=== PATIENT | male | born 1990 | race Two or more races ===

== ENCOUNTER 2024-11-15 07:14 | Inpatient (IN) | payer OTHER ==
[~2024-11-15] VITALS: Ht 167.6 cm; Wt 78.2 kg
--- NOTE | 2024-11-15 08:11 | ED.PDOC ---
GI ASSESSMENT HPI Comments 34 year old female presents to the ED with a chief complaint of abdominal pain onset 6 days. Patient states he has been experiencing abdominal pain for the past 6 days as well as fatigue, fever, headache and dark urine. Patient states he experienced similar pain in the past, had seen PCP but was never given a diagnosis. Denies PMHx. No other symptoms or modifying factors present at this time. Chief Complaint: Abdominal Pain Time Seen by MD: 07:57 Reviewed Notes: Medications, Allergies Allergies: Coded Allergies: NO KNOWN ALLERGIES (Unverified , 11/15/24) Information Source: Patient Mode of Arrival: Ambulatory Timing: Days Duration: Since onset Prehospital treatment: Pain Meds Vomitus: None Severity: Moderate Recent Hx of: None Pain Location: Diffuse Modifying Factors: Nothing Associated sign and symptoms: Abdominal Pain, Other (dark urine) Past Medical History PAST MEDICAL HISTORY: Denies Surgical History: Denies all surgeries Family History Family History: Unknown Social History Smoker: Non-Smoker Alcohol: Denies ETOH Use Drugs: Denies Drug Use Lives In: Home Constitutional: reports: fatigue, fever; denies: chills, diaphoresis, malaise, sweats, weakness, others EENTM: denies: blurred vision, double vision, ear bleeding, ear discharge, ear drainage, ear pain, ear ringing, eye pain, eye redness, hearing loss, mouth pain, mouth swelling, nasal discharge, nose bleeding, nose congestion, nose pain, photophobia, tearing, throat pain, throat swelling, voice changes, others Respiratory: denies: cough, hemoptysis, orthopnea, SOB at rest, shortness of breath, SOB with excertion, stridor, wheezing, others Cardiovascular: denies: chest pain, dizzy spells, diaphoresis, Dyspnea on exertion, edema, irregular heart beat, left arm pain, lightheadedness, palpitations, PND, syncope, others Gastrointestinal: reports: abdominal pain, poor appetite; denies: abdomen distended, blood streaked bowels, constipated, diarrhea, dysphagia, difficulty swallowing, hematemesis, melena, nausea, poor fluid intake, rectal bleeding, rectal pain, vomiting, others Genitourinary: reports: others (dark urine); denies: burning, dysuria, flank pain, frequency, hematuria, incontinence, penile discharge, penile sore, pain, testicle pain, testicle swelling, urgency Neurological: reports: headache; denies: dizziness, fainting, left sided numbness, left sided weakness, numbness, paresthesia, pre-existing deficit, right sided numbness, right sided weakness, seizure, speech problems, tingling, tremors, weakness, others Musculoskeletal: denies: back pain, gout, joint pain, joint swelling, muscle pain, muscle stiffness, neck pain, others Integumetry: denies: bruises, change in color, change in hair/nails, dryness, laceration, lesions, lumps, rash, wounds, others Allergic/Immunocompromised: denies: Difficulty Healing, Frequent Infections, Hives, Itching, others Hematologic/Lymphatic: denies: anemia, blood clots, easy bleeding, easy bruising, swollen glands, others Endocrine: denies: excessive hunger, excessive sweating, excessive thirst, excessive urination, flushing, intolerance to cold, intolerance to heat, unexplained weight gain, unexplained weight loss, others Psychiatric: denies: anxiety, bipolar disorder, depression, hopeless, panic disorder, schizophrenia, sleepless, suicidal, others All Other Systems: Reviewed and Negative Physical Exam General Appearance: Mild Distress HEENT: Normal ENT Inspection, Pharynx Normal, TMs Normal Neck: Full Range of Motion, Non-Tender, Normal, Normal Inspection Respiratory: Chest Non-Tender, Lungs Clear, No Accessory Muscle Use, No Respiratory Distress, Normal Breath Sounds Cardiovascular: No Edema, No JVD, No Murmur, No Gallop, Normal Peripheral Pulses, Regular Rate/Rhythm Breast Exam: Deferred Gastrointestinal: No Organomegaly, Non Tender, No Pulsatile Mass, Normal Bowel Sounds, Soft Genitalia: Deferred Pelvic: Deferred Rectal: Deferred Extremities: No calf tenderness, Normal capillary refill, Normal inspection, Normal range of motion, Non-tender, No pedal edema Musculoskeletal : Apperance: Normal Neurologic: Alert, ticket collector II-XII nml as Tested, No Motor Deficits, Normal Affect, Normal Mood, No Sensory Deficits Cerebellar Function: Normal Reflexes: Normal Skin: Dry, Normal Color, Warm Peripheral Pulses: 3+ Radial (R), 3+ Radial (L) Lymphatic: No Adenopathy Was a procedure done? Was a procedure done?: No GI differential Dx Differential Diagnosis: Constipation, Diverticular disease, Esophagitis, Gastritis/PUD, Gastroenteritis X-Ray, Labs, Meds, VS Vital Signs Date Time Temp Pulse Resp B/P (MAP) Pulse Ox O2 Delivery O2 Flow Rate FiO2 11/15/24 07:22 98.5 98 18 137/81 (99) 99 Lab Test 11/15/24 10:00 Range/Units White Blood Count 19.5 H 4.4-10.8 10^3/uL Red Blood Count 4.45 L 4.5-5.90 10^6/uL Hemoglobin 13.6 13.5-17.5 g/dL Hematocrit 40.0 L 41.0-53.0 % Mean Corpuscular Volume 89.8 80.0-100.0 fL Mean Corpuscular Hemoglobin 30.4 28.0-32.0 pg Mean Corpuscular Hemoglobin Concent 33.9 32.0-36.0 g/dL Red Cell Distribution Width 13.7 11.8-14.3 % Platelet Count 275 140-450 10^3/uL Mean Platelet Volume 8.0 6.9-10.8 fL Neutrophils (%) (Auto) 37.0-80.0 % Lymphocytes (%) (Auto) 10.0-50.0 % Monocytes (%) (Auto) 0.0-12.0 % Basophils (%) (Auto) 0.0-2.0 % Neutrophils # (Auto) 1.6-8.6 10 ^3/uL Lymphocytes # (Auto) 0.4-5.4 10 ^3/uL Monocytes # (Auto) 0-1.3 10 ^3/uL Differential Total Cells Counted 100.0 100 Neutrophils % (Manual) 67 37.0-80.0 Band Neutrophils % (Manual) 8 Lymphocytes % (Manual) 18 10.0-50.0 Monocytes % (Manual) 6 0-12 Eosinophils % (Manual) 1 0-7 Basophils % (Manual) 0 0.0-2.0 Metamyelocytes % (manual) 0 Myelocytes % (Manual) 0 Promyelocytes % (Manual) 0 Blast Cells % (Manual) 0 Reactive Lymphocytes 0 Platelet Estimate Adequate Sodium Level 134 L 136-145 mmol/L Potassium Level 4.1 3.5-5.1 mmol/L Chloride Level 100 98-107 mmol/L Carbon Dioxide Level 29 20-31 mmol/L Anion Gap 5 5-15 Blood Urea Nitrogen 13 9-23 mg/dL Creatinine 1.04 0.700-1.30 mg/dL Glomerular Filtration Rate Calc 98 >90 mL/min BUN/Creatinine Ratio 12.5 10.0-20.0 Serum Glucose 114 H 74-106 mg/dL Calcium Level 10.4 8.7-10.4 mg/dL Lipase 38 12-53 U/L Patient alert. Came in for abdominal discomfort. Vitals stable. Answering questions. Lipase within normal limits. WBC is elevated. Possible gastritis. Abdomen is soft nontender. Establish intravenous access. Was given Rocephin. Explained to the patient. Time of 1ST Reevaluation: 08:27 Reevaluation 1ST: Improved Patient Education/Counseling: Diagnosis, Treatment, Prognosis Family Education/Counseling: No Family Present Additional Information I reviewed the following notes from patient's past medical encounters: The following tests were ordered, and results were reviewed by me: CBC, LIPASE, BMP I discussed treatment and results with medical personnel and: patient Departure 1 Departure Time of Disposition: 17:24 Impression: Primary Impression: Gastritis Qualified Codes: K29.00 - Acute gastritis without bleeding Additional Impression: Leukocytosis Qualified Codes: D72.829 - Elevated white blood cell count, unspecified Disposition: ADMITTED INPATIENT Admit to: Med Surg Condition: Guarded Critical Care Note Critical Care Time?: No Stability Stability form required: No Heart Score Heart Score: Heart Score Response (Comments) Value History N/A 0 EKG N/A 0 Age N/A 0 Risk Factors N/A 0 Troponin N/A 0 Total 0 I personally scribed for DOTTIE BLEVINS MD ([email or web address]) on 11/15/24 at 08:11. Electronically submitted by Coleen Reilly ([email or web address]). I personally scribed for DOTTIE BLEVINS MD ([email or web address]) on 11/15/24 at 08:16. Electronically submitted by Coleen Reilly ([email or web address]). I personally scribed for DOTTIE BLEVINS MD ([email or web address]) on 11/15/24 at 09:08. Electronically submitted by Coleen Reilly ([email or web address]). DOTTIE BLEVINS MD Nov 15, 2024 08:11
[2024-11-15 10:21] LABS: Hemoglobin 13.6 g/dL (13.5-17.5); Mean Corpuscular Hemoglobin 30.4 pg (28.0-32.0); Mean Corpuscular Hgb Conc. 33.9 g/dL (32.0-36.0); Mean Corpuscular Volume 89.8 fL (80.0-100.0); Platelet Count (auto) 275 10^3/uL (140-450); Red Blood Cells 4.45 10^6/uL (4.5-5.90); Red Cell Distribution Width 13.7 % (11.8-14.3); White Blood Cell 19.5 10^3/uL (4.4-10.8)
[2024-11-15 10:26] LABS: Basophils % (manual) 0 (0.0-2.0); Blast Cells 0; Metamyelocytes % 0; Myelocytes % 0; Promyelocytes % 0; Reactive Lymphocytes 0
[2024-11-15 10:41] LABS: Chloride 100 mmol/L (98-107); Potassium 4.1 mmol/L (3.5-5.1)
[2024-11-15 10:42] LABS: Anion Gap 5 (5-15); Calcium 10.4 mg/dL (8.7-10.4); Carbon Dioxide 29 mmol/L (20-31)
[2024-11-15 10:43] LABS: Sodium 134 mmol/L (136-145)
[2024-11-15 10:47] LABS: BUN/Creatinine Ratio 12.5 (10.0-20.0); Blood Urea Nitrogen 13 mg/dL (9-23); Lipase 38 U/L (12-53)
[2024-11-15 11:16] LABS: Glucose 114 mg/dL (74-106)
[2024-11-15 13:11] LABS: Band Neutrophils % (manual) 8; Eosinophils % (manual) 1 (0-7); Lymphocytes % (manual) 18 (10.0-50.0); Monocytes % (manual) 6 (0-12); Platelet Estimate Adequate
[2024-11-15] MEDS: LIDOCAINE VISCOUS 2% 15ML UD PO ONE (16:19)
[2024-11-15] MEDS: MAALOX PLUS or MAALOX 30 ML PO ONE (16:20)
[2024-11-15] MEDS: DONNATAL 5ml ORAL Elix (BELLADONNA ALK-PHENOBARB) PO ONE (16:20)
[2024-11-15] MEDS: cefTRIAXone 1GM/50ML D5W 50 ML IV ONE (17:30)
--- NOTE | 2024-11-15 18:29 | DVH ---
Exam: CT CT AB PEL WO CON-NO ORAL OR IV History: colitis Comparison Study: None available at time of dictation. Technique: Multidetector spiral CT of the abdomen was performed from lung bases to pubic symphysis. Imaging was performed without IV contrast. Axial, coronal and sagittal multiplanar reformats were ob tained from the axial data set by the technologist. Radiation Dose : 1. Abdomen/Pelvis: CTDIvol 8 mGy, DLP 406 mGy*cm. Findings: Evaluation of solid organs is limited due to lack of intravenous contrast use. Lung Bases: No acute or significant lung base finding. Normal heart size. No pleural or pericardial effusion. Liver: The liver is normal in size. Subcentimeter hypodense lesion in the periphery right hepatic lob e with smaller lesions seen scattered throughout the liver. Gallbladder and Biliary Tree: Severe distention with associated wall thickening and pericholecystic f ree fluid. Spleen: Unremarkable Pancreas: The pancreas is grossly normal in appearance. Adrenal Glands: Unremarkable Kidneys: Kidneys are grossly normal without calculi or hydronephrosis. Bladder: Grossly unremarkable for degree of distention. Bowel: The stomach is grossly normal in appearance. Small bowel and colon are normal in caliber and d istribution. Normal appendix is visualized in the right lower quadrant without findings of appendici tis. Ascites: Absent Lymphadenopathy: No mesenteric, retroperitoneal or periportal lymphadenopathy. Abdominal Wall and Mesentery: Unremarkable. Vasculature: The visualized abdominal aorta is normal in size and caliber. Evaluation of abdominal a nd pelvic vessels is limited due to lack of intravenous contrast. Pelvic Organs: Unremarkable Musculoskeletal: No aggressive focal bony lesions, acute fractures or dislocation. IMPRESSION: Severely distended gallbladder with associated wall thickening and adjacent free fluid concerning for acute cholecystitis. END IMPRESSION:
--- NOTE | 2024-11-16 00:10 | DVHHP2 ---
History of Present Illness Reason for Visit: Abdominal pain History of Present Illness 34-year-old male presents for evaluation of abdominal pain. Patient endorses a four day history of right upper quadrant abdominal pain which is sharp in nature and nonradiating. He also reports multiple episodes of nausea with vomiting. Denies diarrhea. No fever or chills. Other acute complaints reported. Past Medical History Denies Past Surgical History Denies Family History Noncontributory Smoke: No ALCOHOL: none Drugs: None Lives: with Family Review of Systems Review of Systems Review of systems are currently negative otherwise addressed in HPI. Allergies: Coded Allergies: NO KNOWN ALLERGIES (Unverified , 11/15/24) Medications Current Medications Medications Dose Ordered Sig/Raisa Route Start Time Stop Time Status Last Admin Dose Admin Ceftriaxone Sodium 50 ml @ 100 mls/hr DAILY@2100 IV 11/16/24 21:00 Metronidazole 100 ml @ 100 mls/hr Q8HR IV 11/16/24 00:30 Ondansetron HCl 4 mg Q4HP PRN IV 11/16/24 00:00 Morphine Sulfate 2 mg Q4HPRN PRN IV 11/16/24 00:00 Exam Vital Signs Vital Signs Date Time Temp Pulse Resp B/P (MAP) Pulse Ox O2 Delivery O2 Flow Rate FiO2 11/15/24 07:22 98.5 98 18 137/81 (99) 99 Exam Gen: 34-year-old male in mild distress Skin: Warm, dry, normal color and texture, no rash. HEENT: Normocephalic atraumatic, mucous membranes moist and pink. Neck: Cervical and supraclavicular nodes normal without enlargement, trachea is midline, thyroid gland is normal without masses. Pulmonary: Clear to auscultation and percussion bilaterally. Cardiac: Regular rate and rhythm. No murmur Abdomen: Soft, right upper quadrant tenderness, nondistended, bowel sounds present all 4 quadrants, no guarding, no rigidity, no organomegaly. Extremities: No cyanosis, clubbing, no edema Neuro: Cranial nerves II through XII grossly intact, normal affect and speech, no focal motor deficits. Labs/Xrays GE / SEX: 34 / M ADM STATUS: REG ER SERVICE [id number] ORDERING PHYSICIAN: DOTTIE BLEVINS MD PROCEDURE(s): ABPL - CT AB PEL WO CON-NO ORAL OR IV REASON: colitis ORDER NUMBER(s): [id number], ACCESSION NUMBER(s): [id number] Exam: CT CT AB PEL WO CON-NO ORAL OR IV History: colitis Comparison Study: None available at time of dictation. Technique: Multidetector spiral CT of the abdomen was performed from lung bases to pubic symphysis. Imaging was performed without IV contrast. Axial, coronal and sagittal multiplanar reformats were obtained from the axial data set by the technologist. Radiation Dose : 1. Abdomen/Pelvis: CTDIvol 8 mGy, DLP 406 mGy*cm. Findings: Evaluation of solid organs is limited due to lack of intravenous contrast use. Lung Bases: No acute or significant lung base finding. Normal heart size. No pleural or pericardial effusion. Liver: The liver is normal in size. Subcentimeter hypodense lesion in the periphery right hepatic lobe with smaller lesions seen scattered throughout the liver. Gallbladder and Biliary Tree: Severe distention with associated wall thickening and pericholecystic free fluid. Spleen: Unremarkable Pancreas: The pancreas is grossly normal in appearance. Adrenal Glands: Unremarkable Kidneys: Kidneys are grossly normal without calculi or hydronephrosis. Bladder: Grossly unremarkable for degree of distention. Bowel: The stomach is grossly normal in appearance. Small bowel and colon are normal in caliber and distribution. Normal appendix is visualized in the right lower quadrant without findings of appendicitis. Ascites: Absent Lymphadenopathy: No mesenteric, retroperitoneal or periportal lymphadenopathy. Abdominal Wall and Mesentery: Unremarkable. Vasculature: The visualized abdominal aorta is normal in size and caliber. Evaluation of abdominal and pelvic vessels is limited due to lack of intravenous contrast. Pelvic Organs: Unremarkable Musculoskeletal: No aggressive focal bony lesions, acute fractures or dislocatio n. IMPRESSION: Severely distended gallbladder with associated wall thickening and adjacent free fluid concerning for acute cholecystitis. END IMPRESSION: Labs Test 11/15/24 23:50 11/15/24 10:00 Range/Units Differential Total Cells Counted 100.0 100 Neutrophils % (Manual) 67 37.0-80.0 Band Neutrophils % (Manual) 8 Lymphocytes % (Manual) 18 10.0-50.0 Monocytes % (Manual) 6 0-12 Eosinophils % (Manual) 1 0-7 Basophils % (Manual) 0 0.0-2.0 Metamyelocytes % (manual) 0 Myelocytes % (Manual) 0 Promyelocytes % (Manual) 0 Blast Cells % (Manual) 0 Reactive Lymphocytes 0 Platelet Estimate Adequate Lipase 38 12-53 U/L Assessment/Plan Assessment/Plan Assessment Acute cholecystitis Acute abdominal pain Leukocytosis Plan Admit the patient to [facility] surge to the hospitalist Surgical consultation Rocephin/Flagyl Maintenance IV fluids NPO Pain management Continue treatment per orders. Plan discussed with: Patient My Orders Orders - TRANG CABA Procedure Category Date Status Time Admit ADMIT 11/15/24 Transmitted 23:53 Ceftriaxone 1gm/50ml PHA 11/16/24 In Process D5w (Rocephin) 21:00 Metronidazole PHA 11/16/24 In Process 500mg/100ml (Flagyl 00:30 * Surgical Consult CONS 11/15/24 Transmitted Sodium Chloride 0.9% PHA 11/16/24 In Process 00:00 PTPTT LAB 11/15/24 In Process 23:56 Chest Xray 1 View XY 11/15/24 Logged 23:56 Gallbladder US 11/15/24 Logged 23:56 Ondansetron Hcl PHA 11/16/24 In Process (Zofran) 00:00 Npo (Nothing By DIET 11/16/24 Transmitted Mouth) Diet Breakfast Condition: Stable PAPO 11/15/24 In Process 23:56 Bedrest With Bathroom PAPO 11/15/24 In Process Privileg 23:56 Morphine Sulfate PHA 11/16/24 In Process Injection 00:00 Date of Service: Nov 15, 2024 Billing Provider: TRANG CABA Common Visit Codes: 12553-[id number] INP/OBS CARE (HIGH) TRANG CABA Nov 16, 2024 00:10
[2024-11-16 00:21] LABS: Hematocrit 40.4 % (41.0-53.0); Hemoglobin 13.6 g/dL (13.5-17.5); Mean Corpuscular Hemoglobin 30.4 pg (28.0-32.0); Mean Corpuscular Hgb Conc. 33.6 g/dL (32.0-36.0); Mean Corpuscular Volume 90.6 fL (80.0-100.0); Platelet Count (auto) 292 10^3/uL (140-450); Red Blood Cells 4.46 10^6/uL (4.5-5.90); Red Cell Distribution Width 13.9 % (11.8-14.3); White Blood Cell 16.7 10^3/uL (4.4-10.8)
[2024-11-16 00:31] LABS: Basophils % (manual) 0 (0.0-2.0); Blast Cells 0; Metamyelocytes % 0; Myelocytes % 0; Promyelocytes % 0; Reactive Lymphocytes 0
[2024-11-16 00:55] LABS: INR 1.06 (0.9-1.15); Prothrombin Time 11.4 sec (9.3-11.8)
--- NOTE | 2024-11-16 00:57 | DVH ---
CHEST RADIOGRAPH Indication: preop Technique: Single frontal view of the chest was obtained Comparison: None FINDINGS: Lines and Tubes: None Lungs: Clear Pleura: No effusion. No pneumothorax. Cardiomediastinal contours: Unremarkable Bones: Unremarkable IMPRESSION: Clear lungs.
--- NOTE | 2024-11-16 01:05 | DVH ---
INDICATION: r/o cholecystitis TECHNIQUE: Multiple real-time sonographic images were obtained of the right upper quadrant. COMPARISON: None FINDINGS: The liver demonstrates homogenous echotexture without focal mass lesions. The liver measure s 14cm. There is no intrahepatic or extrahepatic ductal dilatation. The common duct measures 4 mm . The gallbladder is without evidence of stone or sludge. The gallbladder wall measures 7.5 mm and is within normal limits. The right kidney measures 11 cm. The right kidney is normal in contour, size, and shape. The echog enicity is normal. There is no hydronephrosis. The pancreas is not well visualized due to overlying bowel gas. IMPRESSION: Multiple non mobile stones and biliary sludge in a distended gallbladder. Negative sonographic house 's sign. Mild thickening of the gallbladder wall with pericholecystic free fluid. Findings are noelle rning for acute cholecystitis.
[2024-11-16 01:29] LABS: Band Neutrophils % (manual) 1; Eosinophils % (manual) 2 (0-7); Lymphocytes % (manual) 17 (10.0-50.0); Monocytes % (manual) 10 (0-12)
[2024-11-16 01:30] LABS: Platelet Estimate Adequate
[2024-11-16 01:34] LABS: Albumin 4.7 g/dL (3.2-4.8); Anion Gap 5 (5-15); BUN/Creatinine Ratio 15.5 (10.0-20.0); Bilirubin, Total 0.5 mg/dL (0.2-1.0); Blood Urea Nitrogen 17 mg/dL (9-23); Calcium 10.3 mg/dL (8.7-10.4); Carbon Dioxide 30 mmol/L (20-31); Chloride 100 mmol/L (98-107); Total Protein 8.2 g/dL (5.7-8.2)
[2024-11-16 01:36] LABS: Alanine Aminotransferase 248 U/L (7-40); Alkaline Phosphatase 210 U/L (46-116); Aspartate Aminotransferase 195 U/L (13-40); Glucose 140 mg/dL (74-106); Sodium 135 mmol/L (136-145)
[2024-11-16 03:05] VITALS: O2SAT 98
[2024-11-16] MEDS: metroNIDAZOLE 500MG/100ML 100 ML IV SCH (03:12)
[2024-11-16] MEDS: SODIUM CHLORIDE 0.9% 1,000 ML IV ONE (04:18)
[2024-11-16 06:00] VITALS: BP 105/69; PULSE 95; RESP 18; TEMP 98; O2SAT 97
[2024-11-16 10:19] VITALS: PULSE 82; RESP 18; O2SAT 96
--- NOTE | 2024-11-16 15:37 | DVHINCON2 ---
Date of service: Nov 16, 2024 Family History: Patient reports no known family medical history. Allergies: Coded Allergies: NO KNOWN ALLERGIES (Unverified , 11/15/24) Current Medications Current Medications Medications (Trade) Dose Ordered Sig/Raisa Route PRN Reason Start Time Stop Time Status Last Admin Ceftriaxone Sodium 50 ml @ 100 mls/hr DAILY@2100 IV 11/16/24 21:00 Metronidazole 100 ml @ 100 mls/hr Q8HR IV 11/16/24 00:30 11/16/24 13:13 Ondansetron HCl (Zofran) 4 mg Q4HP PRN IV NAUSEA / VOMITING 11/16/24 00:00 Morphine Sulfate 2 mg Q4HPRN PRN IV SEVERE PAIN (7-10 PAIN SCALE) 11/16/24 00:00 Vital Signs Vital Signs Date Time Temp Pulse Resp B/P (MAP) Pulse Ox O2 Delivery O2 Flow Rate FiO2 11/16/24 10:19 82 18 96 Room Air* 0 21 11/16/24 06:00 98.0 105/69 (81) 98.0 Labs/Diagnostic Data Labs Test 11/15/24 23:50 11/15/24 10:00 Range/Units White Blood Count 16.7 H 4.4-10.8 10^3/uL Red Blood Count 4.46 L 4.5-5.90 10^6/uL Hemoglobin 13.6 13.5-17.5 g/dL Hematocrit 40.4 L 41.0-53.0 % Mean Corpuscular Volume 90.6 80.0-100.0 fL Mean Corpuscular Hemoglobin 30.4 28.0-32.0 pg Mean Corpuscular Hemoglobin Concent 33.6 32.0-36.0 g/dL Red Cell Distribution Width 13.9 11.8-14.3 % Platelet Count 292 140-450 10^3/uL Mean Platelet Volume 8.4 6.9-10.8 fL Neutrophils (%) (Auto) 37.0-80.0 % Lymphocytes (%) (Auto) 10.0-50.0 % Monocytes (%) (Auto) 0.0-12.0 % Basophils (%) (Auto) 0.0-2.0 % Neutrophils # (Auto) 1.6-8.6 10 ^3/uL Lymphocytes # (Auto) 0.4-5.4 10 ^3/uL Monocytes # (Auto) 0-1.3 10 ^3/uL Differential Total Cells Counted 100.0 100 Neutrophils % (Manual) 70 37.0-80.0 Band Neutrophils % (Manual) 1 Lymphocytes % (Manual) 17 10.0-50.0 Monocytes % (Manual) 10 0-12 Eosinophils % (Manual) 2 0-7 Basophils % (Manual) 0 0.0-2.0 Metamyelocytes % (manual) 0 Myelocytes % (Manual) 0 Promyelocytes % (Manual) 0 Blast Cells % (Manual) 0 Reactive Lymphocytes 0 Platelet Estimate Adequate Prothrombin Time 11.4 9.3-11.8 sec Prothrombin Time INR 1.06 0.9-1.15 Activated Partial Thromboplast Time 28.0 24.5-34.5 SEC Sodium Level 135 L 136-145 mmol/L Potassium Level 4.0 3.5-5.1 mmol/L Chloride Level 100 98-107 mmol/L Carbon Dioxide Level 30 20-31 mmol/L Anion Gap 5 5-15 Blood Urea Nitrogen 17 9-23 mg/dL Creatinine 1.10 0.700-1.30 mg/dL Glomerular Filtration Rate Calc 91 >90 mL/min BUN/Creatinine Ratio 15.5 10.0-20.0 Serum Glucose 140 H 74-106 mg/dL Calcium Level 10.3 8.7-10.4 mg/dL Total Bilirubin 0.5 0.2-1.0 mg/dL Aspartate Amino Transferase (AST) 195 H 13-40 U/L Alanine Aminotransferase (ALT) 248 H 7-40 U/L Alkaline Phosphatase 210 H 46-116 U/L Total Protein 8.2 5.7-8.2 g/dL Albumin 4.7 3.2-4.8 g/dL Lipase 38 12-53 U/L Assessment [id number] PAIN RUQ US GALLSTONES R/O AC CHOLECYSTITIS ELEVATED LFT R/O CBD STONE MRCP CONSIDER EMERGENT GB SURGERY BASED ON ONGOING EVAL Plan discussed with: Patient KURTIS CHEW MD Nov 16, 2024 15:37
--- NOTE | 2024-11-16 16:00 | DVH ---
MRI Abdomen, MRCP without IV Contrast Exam Date: 11/16/2024 03:24 PM Comparison: None History: R/O CBD STONE Technique: Multisequence multiplanar MRI images were obtained of the abomen. MRCP including 3D SPACE, Radial 3D slabs and SPACE 3D MIP images Findings: Liver: Few hepatic cysts measuring up to 14 mm.. Spleen: Unremarkable. Pancreas: The pancreas is normal in appearance without focal lesions. Gallbladder and ducts: Calculus in the neck of the gallbladder measuring up 18 mm. Associated gallbla dder wall thickening. The cystic duct, right and left hepatic ducts, common hepatic duct, and common bile ducts are unremarkable. The pancreatic duct is within normal limits. Adrenal glands: Unremarkable. Kidneys: Normal appearance without suspicious lesions or hydronephrosis. Visualized bowel: Grossly unremarkable. Vasculature: Unremarkable. Lymphadenopathy: No evidence for lymphadenopathy. Ascites: Absent. Musculoskeletal: Bone marrow signal is normal. IMPRESSION: 1. Acute cholecystitis. Surgical evaluation is recommended. No choledocholithiasis. Hepatic cysts. HS:Ro
--- NOTE | 2024-11-16 18:31 | DVHINCON2 ---
DATE OF CONSULTATION: 11/16/2024 HISTORY OF PRESENT ILLNESS: A 34 years old, coming in with right upper quadrant pain for the past few days, got worse, came to the hospital, now feeling better, some nausea, no vomiting. No constipation or diarrhea. No hematemesis or melena. No bleeding per rectum. PAST MEDICAL HISTORY: No diabetes, hypertension. PAST SURGICAL HISTORY: Nothing significant. PHYSICAL EXAMINATION: VITAL SIGNS: Currently, afebrile, stable signs. HEENT: With no evidence of pallor, cyanosis or jaundice. NECK: Supple, nontender with no thyromegaly or lymphadenopathy. CHEST AND LUNGS: Clear. HEART: Within normal limits. ABDOMEN: Soft, tender right upper quadrant with minimal rebound. EXTREMITIES: Unremarkable. NEUROLOGIC: Intact. CLINICAL IMPRESSION: Rule out acute cholecystitis. Liver enzymes are elevated, rule out common bile duct stone. PLAN: Plan will be to consider MRCP to rule out CBD stone and then consider laparoscopic, possible open cholecystectomy based upon ongoing evaluation. MD RUDI Juarez/CONNIE TID: [id number] RECEIPT: [id number] cc: Aagpito Arreola
[2024-11-16 20:11] VITALS: RESP 18; O2SAT 97
[2024-11-16 21:00] VITALS: BP_SYST 104; BP_SYST 126; BP_DIAS 63; BP_DIAS 76; PULSE 87; PULSE 92; RESP 18; TEMP 98.3; TEMP 98.5; O2SAT 96; O2SAT 99
[2024-11-16] MEDS: cefTRIAXone 1GM/50ML D5W 50 ML IV SCH (21:01)
--- NOTE | 2024-11-16 22:29 | DVHPN2 ---
Subjective 11/16 pain continues. LFTs elevated. surgery consulted and plan for OR tomorrow if no choledocholithiass Reviewed: H&P Changes from previous H/P or p: No Changes General: Per HPI Objective Vitals Vital Signs Date Time Temp Pulse Resp B/P (MAP) Pulse Ox O2 Delivery O2 Flow Rate FiO2 11/16/24 20:11 18 97 Room Air* 0 21 11/16/24 10:19 82 11/16/24 06:00 98.0 105/69 (81) 98.0 Intake/Output Intake and Output 11/16/24 07:00 Intake Total 250 ml Balance 250 ml Intake IV Total 250 ml Exam GEN: Healthy appearing, well-developed, NAD. HEENT: NC/AT; MMM. CV: RRR, no m/r/g. LUNGS: CTAB, no w/r/c. ABD: RUQ tender to palpation. Hypoactive bowel sounds. EXT: skin Warm, well perfused. no rashes. No clubbing, cyanosis, or edema. NEURO: Ambulating with no limitations. No focal deficits. Medications Current Medications Medications Dose Ordered Sig/Raisa Route Start Time Stop Time Status Last Admin Dose Admin Ceftriaxone Sodium 50 ml @ 100 mls/hr DAILY@2100 IV 11/16/24 21:00 11/16/24 21:01 100 MLS/HR Metronidazole 100 ml @ 100 mls/hr Q8HR IV 11/16/24 00:30 11/16/24 13:13 100 MLS/HR Ondansetron HCl 4 mg Q4HP PRN IV 11/16/24 00:00 Morphine Sulfate 2 mg Q4HPRN PRN IV 11/16/24 00:00 Laboratory Results Laboratory Tests 11/15/24 23:50 Chemistry Test 11/15/24 23:50 Albumin 4.7 g/dL (3.2-4.8) Calcium Level 10.3 mg/dL (8.7-10.4) Total Protein 8.2 g/dL (5.7-8.2) Coagulation Test 11/15/24 23:50 Prothrombin Time 11.4 sec (9.3-11.8) Prothrombin Time INR 1.06 (0.9-1.15) Activated Partial Thromboplast Time 28.0 SEC (24.5-34.5) LFT Test 11/15/24 23:50 Alanine Aminotransferase (ALT) 248 U/L (7-40) H Alkaline Phosphatase 210 U/L (46-116) H Aspartate Amino Transferase (AST) 195 U/L (13-40) H Total Bilirubin 0.5 mg/dL (0.2-1.0) Labs and/or images reviewed: Labs reviewed by me, Image(s) reviewed by me Assessment/Plan Assessment/Plan 11/16 pain continues. LFTs elevated. surgery consulted and plan for OR tomorrow if no choledocholithiass # intractable abdominal pain due to cholecystitis # acute cholecystitis # leukocytosis # transaminitis # ALP elevated # sepsis/septicemia, GI source - patient presented with acute onset of right upper quadrant abdominal pain -on admit patient has low-grade fevers, tachycardia, leukocytosis. - CT abdomen and pelvis confirms acute cholecystitis. - RUQ ultrasound confirming acute cholecystitis , with nonmobile stones and biliary sludge in the distended gallbladder. -noting transaminitis with ALP elevation, MRCP done which rules out choledocholithiasis and confirms acute cholecystitis -IV antibiotics - IV fluids -l surgery consulted plan for surgery on 11/17 -NPO midnight Diet NPO midnight, regular thereafter GI prophylaxis PPI IV daily DVT prophylaxis Lovenox subQ Med tele Full code Plan discussed with: Patient Date of Service: Nov 16, 2024 Billing Provider: NEHAL DORMAN MD Common Visit Codes: [id number] INP/OBS CARE(HIGH) NEHAL DORMAN MD Nov 16, 2024 22:29
[2024-11-16] MEDS ORDERED: HYDROcodone-ACET 10/325MG TAB PO PRN (22:30)
[2024-11-16 23:02] VITALS: BP 108/70; PULSE 94; RESP 18; TEMP 98.5; O2SAT 96
[2024-11-17] VITALS (8 sets, daily range): BP systolic 101–117; BP diastolic 61–71; PULSE 62–90; RESP 10–20; TEMP 97.8–99.4; O2SAT 93–99
[2024-11-17] MEDS: MORPHINE SULFATE INJ 2 MG/ml SYRG IV PRN (02:21)
[2024-11-17 07:10] LABS: Basophils # (auto) 0 10 ^3/uL (0-0.2); Basophils % (auto) 0.3 % (0.0-2.0); Eosinophils # (auto) 0.2 10 ^3/uL (0-0.8); Eosinophils % (auto) 1.5 % (0.0-7.0); Hemoglobin 12.6 g/dL (13.5-17.5); Lymphocytes % (auto) 15.4 % (10.0-50.0); Mean Corpuscular Hemoglobin 30.1 pg (28.0-32.0); Mean Corpuscular Hgb Conc. 33.1 g/dL (32.0-36.0); Mean Corpuscular Volume 91.2 fL (80.0-100.0); Monocytes # (auto) 1.1 10 ^3/uL (0-1.3); Monocytes % (auto) 8.7 % (0.0-12.0); Neutrophils # (auto) 9.8 10 ^3/uL (1.6-8.6); Neutrophils % (auto) 74.1 % (37.0-80.0); Nucleated Red Blood Cells % 0.1 %; Platelet Count (auto) 308 10^3/uL (140-450); Red Blood Cells 4.17 10^6/uL (4.5-5.90); Red Cell Distribution Width 13.9 % (11.8-14.3); White Blood Cell 13.2 10^3/uL (4.4-10.8)
[2024-11-17 07:39] LABS: Anion Gap 8 (5-15); BUN/Creatinine Ratio 16.5 (10.0-20.0); Blood Urea Nitrogen 19 mg/dL (9-23); Calcium 9.7 mg/dL (8.7-10.4); Carbon Dioxide 27 mmol/L (20-31); Glucose 89 mg/dL (74-106); Sodium 142 mmol/L (136-145)
[2024-11-17 07:41] LABS: Bilirubin, Total 0.5 mg/dL (0.2-1.0); Total Protein 7.2 g/dL (5.7-8.2)
[2024-11-17 07:48] LABS: Alanine Aminotransferase 188 U/L (7-40); Alkaline Phosphatase 177 U/L (46-116); Aspartate Aminotransferase 74 U/L (13-40); Chloride 107 mmol/L (98-107)
[2024-11-17] MEDS ORDERED: PROPOFOL 10 MG/ML 20 ML IV ONE ×2 (08:16→08:19)
[2024-11-17] MEDS ORDERED: ROCURONIUM 10MG/ML 10ML VIAL IV ONE (08:18)
[2024-11-17] MEDS ORDERED: LIDOCAINE 1% INJ PF 5ML AMP ONE (08:19)
[2024-11-17] MEDS: ceFAZolin 2 GM/D5W100ml 100 ML IV ONE (08:49)
[2024-11-17] MEDS ORDERED: MIDAZOLAM HCL 2MG/2ML 2ml VIAL (1mg/ml) ONE (09:23)
[2024-11-17] MEDS ORDERED: HYDROmorphone HCL 2 MG/ML VL/or syr ONE (09:31)
[2024-11-17] MEDS ORDERED: METOCLOPRAMIDE HCL 5MG/ml INJ 2ml VIAL ONE (09:46)
[2024-11-17] MEDS ORDERED: KETOROLAC TROMETH 30 MG/ML 1ML VIAL ONE (09:46)
[2024-11-17] MEDS ORDERED: ONDANSETRON HCL 4 MG/2 ML VIAL ONE (09:46)
--- NOTE | 2024-11-17 10:57 | DVHOP2 ---
Operative Report [id number] AC CHOLECYSTITIS DENSE ADHESIONS LAP LYSIS OF ADHESIONS LAP TATE EBL 25 CC ONE DRAIN NO COMPLICATIONS KURTIS CHEW MD Nov 17, 2024 10:57
[2024-11-17] MEDS ORDERED: SUGAMMADEX 200mg/2ml Vial (100MG/ML) IV ONE (11:06)
--- NOTE | 2024-11-17 11:30 | DVHOP ---
DATE OF SURGERY: 11/17/2024 PREOPERATIVE DIAGNOSIS: Acute cholecystitis. POSTOPERATIVE DIAGNOSIS: Acute cholecystitis. PROCEDURE: Extensive laparoscopic lysis of adhesions with laparoscopic cholecystectomy. SURGEON: Shilo Cabrales MD. STEELER: None. ANESTHESIA: General. BLOOD LOSS: Close to 25 mL. DRAINS: One drain was used. COMPLICATIONS: No complications were encountered. DESCRIPTION OF PROCEDURE: The patient is prepped and draped in the usual sterile fashion in a supine position and a supraumbilical incision was applied, was taken down to the fascia. The Veress needle was introduced and CO2 insufflation was started to a pressure of 15 mmHg. The needle was withdrawn, replaced by the 5 mm trocar and a telescope introduced and the gallbladder was found to be acutely inflamed, distended with omental tissue wrapped all around it. A 12 mm port was applied close to the xiphisternum and two 5 mm ports were applied more laterally in subcostal line. With the instruments in place and the patient in the head-up and right upper lateral position, the omental tissue was taken down meticulously using the Harmonic device and blunt dissection. The gallbladder was grasped at the fundus and at the infundibulum and the cystic duct and artery were , dissected out and clipped proximally and distally using Hem-o-Kisha clips and divided in between, making sure CBD was kept out of harm's at all times and gallbladder was detached from the liver bed using Harmonic dissection, placed in an EndoCatch bag and removed from the xiphisternal wound without any complication. Hemostasis was secured. Irrigation fluid was removed. The port sites were free from bleeding. Gonzalo powder was applied for the liver bed for hemostasis. A size 19 Dimas drainage tube was used to drain the liver bed, bringing out from the lateral subcostal incision. After that, one port had been withdrawn and then the CO2 was let out. The patient was placed in supine. The drain was secured with a silk suture. The trocars were withdrawn after all the CO2 had been let out and the patient was placed in supine. The fascial edges of the xiphisternal wound was brought together using 0 Vicryl suture and the skin incisions were brought together using 3-0 Monocryl suture in a subcuticular fashion. Surgical glue was applied. The patient tolerated the procedure well and was taken back to the recovery room in a stable condition. MD RUDI Juarez/PATRICIA/ELLIOTT TID: [id number] RECEIPT: [id number] cc:
[2024-11-17] MEDS: BUPIVACAINE 0.25% INJ 50ML VIAL ONE (12:23)
--- NOTE | 2024-11-17 13:33 | DVHPN2 ---
Subjective udpates: 11/16 pain continues. LFTs elevated. surgery consulted and plan for OR tomorrow if no choledocholithiass 11/17 pt s/p lap karl, apparently multiple adhesions per Op note. sugery following. patient feels ok. returns to bed with NERI drain and NG tube. VS stable. defer diet resumption to surgeon. Reviewed: H&P Changes from previous H/P or p: No Changes General: Per HPI Objective Vitals Vital Signs Date Time Temp Pulse Resp B/P (MAP) Pulse Ox O2 Delivery O2 Flow Rate FiO2 11/17/24 11:45 82 19 122/70 (87) 96 11/17/24 11:07 Room Air 0 97 11/17/24 10:55 97.0 97.0 Intake/Output Intake and Output 11/17/24 07:00 Intake Total 250 ml Balance 250 ml Intake Oral 0 ml IV Total 250 ml # Voids 3 Exam GEN: Healthy appearing, well-developed, NAD. HEENT: NC/AT; MMM. CV: RRR, no m/r/g. LUNGS: CTAB, no w/r/c. ABD: Hypoactive bowel sounds. abdominal binder in place, NERI drain with serosanginuous drainage, NG tube is some blood drainaige. dressing of lap karl otherwise CDI. EXT: skin Warm, well perfused. no rashes. No clubbing, cyanosis, or edema. NEURO: Ambulating with no limitations. No focal deficits. Medications Current Medications Medications Dose Ordered Sig/Raisa Route Start Time Stop Time Status Last Admin Dose Admin Ceftriaxone Sodium 50 ml @ 100 mls/hr DAILY@2100 IV 11/16/24 21:00 11/16/24 21:01 100 MLS/HR Metronidazole 100 ml @ 100 mls/hr Q8HR IV 11/16/24 00:30 11/17/24 05:04 100 MLS/HR Ondansetron HCl 4 mg Q4HP PRN IV 11/16/24 00:00 Morphine Sulfate 2 mg Q4HPRN PRN IV 11/16/24 00:00 11/17/24 02:21 2 MG Acetaminophen/ Hydrocodone Bitart 1 tab Q4HP PRN PO 11/16/24 22:30 Laboratory Results Laboratory Tests 11/17/24 05:48 Chemistry Test 11/17/24 05:48 Albumin 4.0 g/dL (3.2-4.8) Calcium Level 9.7 mg/dL (8.7-10.4) Total Protein 7.2 g/dL (5.7-8.2) LFT Test 11/17/24 05:48 Alanine Aminotransferase (ALT) 188 U/L (7-40) H Alkaline Phosphatase 177 U/L (46-116) H Aspartate Amino Transferase (AST) 74 U/L (13-40) H Total Bilirubin 0.5 mg/dL (0.2-1.0) Labs and/or images reviewed: Labs reviewed by me, Image(s) reviewed by me Assessment/Plan Assessment/Plan 11/17 pt s/p lap karl, apparently multiple adhesions per Op note. sugery following. patient feels ok. returns to bed with NERI drain and NG tube. VS stable. defer diet resumption to surgeon. # intractable abdominal pain due to cholecystitis # acute cholecystitis # leukocytosis # transaminitis # ALP elevated # sepsis/septicemia, GI source - patient presented with acute onset of right upper quadrant abdominal pain -on admit patient has low-grade fevers, tachycardia, leukocytosis. - CT abdomen and pelvis confirms acute cholecystitis. - RUQ ultrasound confirming acute cholecystitis , with nonmobile stones and biliary sludge in the distended gallbladder. -noting transaminitis with ALP elevation, MRCP done which rules out choledocholithiasis and confirms acute cholecystitis - sp lap karl on 11/17. doing well after surgery. return to room w NERI drain, abd binder and NG tube. -IV antibiotics - IV fluids - diet per surgery - follow for bowel function and infectious signs. Diet CLD if cleared by surgery GI prophylaxis PPI IV daily DVT prophylaxis Lovenox subQ Med tele Full code Plan discussed with: Patient My Orders Orders - NEHAL DORMAN MD Procedure Category Date Status Time Urinalysis LAB 11/16/24 Logged 22:23 Hydrocodone-Acet PHA 11/16/24 In Process 10/325mg Tab ([place] 22:30 Date of Service: Nov 17, 2024 Billing Provider: NEHAL DORMAN MD Common Visit Codes: [id number] INP/OBS CARE(HIGH) NEHAL DORMAN MD Nov 17, 2024 13:33
[2024-11-17] MEDS: ONDANSETRON HCL 4 MG/2 ML VIAL IV PRN (18:57)
[2024-11-18] VITALS (8 sets, daily range): BP systolic 112–118; BP diastolic 60–81; PULSE 71–83; RESP 14–19; TEMP 97.5–98.7; O2SAT 93–96
[2024-11-18 08:12] LABS: Albumin 3.8 g/dL (3.2-4.8); Anion Gap 8 (5-15); Bilirubin, Total 0.4 mg/dL (0.2-1.0); Blood Urea Nitrogen 14 mg/dL (9-23); Calcium 9.5 mg/dL (8.7-10.4); Carbon Dioxide 26 mmol/L (20-31); Chloride 107 mmol/L (98-107); Glucose 95 mg/dL (74-106); Potassium 4.1 mmol/L (3.5-5.1); Sodium 141 mmol/L (136-145)
[2024-11-18 08:26] LABS: Alanine Aminotransferase 135 U/L (7-40); Alkaline Phosphatase 160 U/L (46-116); Aspartate Aminotransferase 45 U/L (13-40)
[2024-11-18 08:40] LABS: Hematocrit 37.5 % (41.0-53.0); Hemoglobin 12.3 g/dL (13.5-17.5); Mean Corpuscular Hemoglobin 30.1 pg (28.0-32.0); Mean Corpuscular Hgb Conc. 32.8 g/dL (32.0-36.0); Mean Corpuscular Volume 91.8 fL (80.0-100.0); Platelet Count (auto) 361 10^3/uL (140-450); Red Blood Cells 4.09 10^6/uL (4.5-5.90); Red Cell Distribution Width 14.1 % (11.8-14.3); White Blood Cell 11.9 10^3/uL (4.4-10.8)
[2024-11-18 08:45] LABS: Basophils % (manual) 0 (0.0-2.0); Blast Cells 0; Eosinophils % (manual) 0 (0-7); Metamyelocytes % 0; Myelocytes % 0; Promyelocytes % 0; Reactive Lymphocytes 0
[2024-11-18 09:40] LABS: Band Neutrophils % (manual) 2; Lymphocytes % (manual) 17 (10.0-50.0); Monocytes % (manual) 7 (0-12)
[2024-11-18 09:41] LABS: Platelet Estimate Adequate; RBC Morphology Normal
--- NOTE | 2024-11-18 13:14 | DVHPN2 ---
Progress Note Date Seen: Nov 18, 2024 Medical Necessity Reason Pt with a Central, PICC or Fol: No Objective vital signs Vital Sign Date Time Temp Pulse Resp B/P (MAP) Pulse Ox O2 Delivery O2 Flow Rate FiO2 11/18/24 08:36 97.5 83 17 116/60 (78) 95 97.5 11/17/24 20:00 Room Air* 0 21 Total Intake and Output 11/17/24 11/17/24 11/18/24 15:00 23:00 07:00 Intake Total 100 ml 300 ml 0 ml Output Total 20 ml 780 ml 525 ml Balance 80 ml -480 ml -525 ml medications Current Medications Medications Dose Ordered Sig/Raisa Route Start Time Stop Time Status Last Admin Dose Admin Ceftriaxone Sodium 50 ml @ 100 mls/hr DAILY@2100 IV 11/16/24 21:00 11/17/24 21:00 100 MLS/HR Metronidazole 100 ml @ 100 mls/hr Q8HR IV 11/16/24 00:30 11/17/24 22:00 100 MLS/HR Ondansetron HCl 4 mg Q4HP PRN IV 11/16/24 00:00 11/17/24 18:57 4 MG Morphine Sulfate 2 mg Q4HPRN PRN IV 11/16/24 00:00 11/17/24 23:02 2 MG Acetaminophen/ Hydrocodone Bitart 1 tab Q4HP PRN PO 11/16/24 22:30 laboratory and microbiology Laboratory Tests 11/18/24 06:20 Test 11/18/24 06:20 Range/Units Serum Glucose 95 74-106 mg/dL Problem List/Assessment/Plan Problem List/Assessment/Plan AFEBRILE VSS ABD SOFT WOUNDS HEALING LFT TRENDING DOWN DRAIN 30 CC SEROSANGUINEOUS NO COMPLICATIONS CLAMP NG ALLOW SIPS OF WATER REPEAT LABS AM Plan discussed with: Patient KURTIS CHEW MD Nov 18, 2024 13:14
--- NOTE | 2024-11-18 23:49 | DVHPN2 ---
Subjective udpates: 11/16 pain continues. LFTs elevated. surgery consulted and plan for OR tomorrow if no choledocholithiass 11/17 pt s/p lap karl, apparently multiple adhesions per Op note. sugery following. patient feels ok. returns to bed with NERI drain and NG tube. VS stable. defer diet resumption to surgeon. 11/18 patient is improving, feeling very hungry today. We will wait for surgery to clear patient for diet. Reviewed: H&P Changes from previous H/P or p: No Changes General: Per HPI Objective Vitals Vital Signs Date Time Temp Pulse Resp B/P (MAP) Pulse Ox O2 Delivery O2 Flow Rate FiO2 11/18/24 21:00 98.2 73 14 116/81 (93) 93 98.2 11/18/24 08:30 Room Air* 0 21 Intake/Output Intake and Output 11/18/24 07:00 Intake Total 400 ml Output Total 1325 ml Balance -925 ml Intake Oral 0 ml IV Total 400 ml Output Urine Total 1275 ml Drainage Total 50 ml Exam GEN: Healthy appearing, well-developed, NAD. HEENT: NC/AT; MMM. CV: RRR, no m/r/g. LUNGS: CTAB, no w/r/c. ABD: Hypoactive bowel sounds. abdominal binder in place, NERI drain with serosanginuous drainage, NG tube is some blood drainaige. dressing of lap karl otherwise CDI. EXT: skin Warm, well perfused. no rashes. No clubbing, cyanosis, or edema. NEURO: Ambulating with no limitations. No focal deficits. Medications Current Medications Medications Dose Ordered Sig/Raisa Route Start Time Stop Time Status Last Admin Dose Admin Ceftriaxone Sodium 50 ml @ 100 mls/hr DAILY@2100 IV 11/16/24 21:00 11/18/24 21:18 100 MLS/HR Metronidazole 100 ml @ 100 mls/hr Q8HR IV 11/16/24 00:30 11/18/24 22:30 100 MLS/HR Ondansetron HCl 4 mg Q4HP PRN IV 11/16/24 00:00 11/17/24 18:57 4 MG Morphine Sulfate 2 mg Q4HPRN PRN IV 11/16/24 00:00 11/17/24 23:02 2 MG Acetaminophen/ Hydrocodone Bitart 1 tab Q4HP PRN PO 11/16/24 22:30 Laboratory Results Laboratory Tests 11/18/24 06:20 Chemistry Test 11/18/24 06:20 Albumin 3.8 g/dL (3.2-4.8) Calcium Level 9.5 mg/dL (8.7-10.4) Total Protein 7.0 g/dL (5.7-8.2) LFT Test 11/18/24 06:20 Alanine Aminotransferase (ALT) 135 U/L (7-40) H Alkaline Phosphatase 160 U/L (46-116) H Aspartate Amino Transferase (AST) 45 U/L (13-40) H Total Bilirubin 0.4 mg/dL (0.2-1.0) Labs and/or images reviewed: Labs reviewed by me, Image(s) reviewed by me Assessment/Plan Assessment/Plan 11/18 patient is improving, feeling very hungry today. We will wait for surgery to clear patient for diet. # intractable abdominal pain due to cholecystitis # acute cholecystitis # leukocytosis # transaminitis # ALP elevated # sepsis/septicemia, GI source - patient presented with acute onset of right upper quadrant abdominal pain -on admit patient has low-grade fevers, tachycardia, leukocytosis. - CT abdomen and pelvis confirms acute cholecystitis. - RUQ ultrasound confirming acute cholecystitis , with nonmobile stones and biliary sludge in the distended gallbladder. -noting transaminitis with ALP elevation, MRCP done which rules out choledocholithiasis and confirms acute cholecystitis - sp lap karl on 11/17. doing well after surgery. return to room w NERI drain, abd binder and NG tube. -IV antibiotics - IV fluids - diet per surgery - given only ice chips, maintained on NG tube. - follow for bowel function and infectious signs. Diet NPO with ice chips GI prophylaxis PPI IV daily DVT prophylaxis Lovenox subQ Med tele Full code Plan discussed with: Patient Date of Service: Nov 18, 2024 Billing Provider: NEHAL DORMAN MD Common Visit Codes: [id number] INP/OBS CARE(HIGH) NEHAL DORMAN MD Nov 18, 2024 23:49
[2024-11-19] VITALS (8 sets, daily range): BP systolic 110–125; BP diastolic 66–81; PULSE 66–98; RESP 14–17; TEMP 97.2–98.3; O2SAT 94–98
[2024-11-19 08:43] LABS: Hematocrit 38.7 % (41.0-53.0); Hemoglobin 12.9 g/dL (13.5-17.5); Mean Corpuscular Hemoglobin 30.3 pg (28.0-32.0); Mean Corpuscular Hgb Conc. 33.4 g/dL (32.0-36.0); Mean Corpuscular Volume 90.9 fL (80.0-100.0); Platelet Count (auto) 382 10^3/uL (140-450); Red Blood Cells 4.26 10^6/uL (4.5-5.90); Red Cell Distribution Width 13.9 % (11.8-14.3); White Blood Cell 12.7 10^3/uL (4.4-10.8)
[2024-11-19 09:01] LABS: Basophils % (manual) 0 (0.0-2.0); Blast Cells 0; Eosinophils % (manual) 0 (0-7); Metamyelocytes % 0; Promyelocytes % 0
[2024-11-19 10:10] LABS: Band Neutrophils % (manual) 1; Lymphocytes % (manual) 23 (10.0-50.0); Monocytes % (manual) 2 (0-12); Myelocytes % 2; Platelet Estimate Adequate; Reactive Lymphocytes 1
[2024-11-19 10:24] LABS: Albumin 3.9 g/dL (3.2-4.8); Anion Gap 8 (5-15); Aspartate Aminotransferase 32 U/L (13-40); BUN/Creatinine Ratio 16.7 (10.0-20.0); Blood Urea Nitrogen 15 mg/dL (9-23); Calcium 9.6 mg/dL (8.7-10.4); Carbon Dioxide 24 mmol/L (20-31); Potassium 4.1 mmol/L (3.5-5.1); Sodium 139 mmol/L (136-145)
[2024-11-19 10:25] LABS: Alanine Aminotransferase 103 U/L (7-40); Alkaline Phosphatase 138 U/L (46-116); Bilirubin, Total 0.4 mg/dL (0.2-1.0); Chloride 107 mmol/L (98-107); Glucose 72 mg/dL (74-106)
--- NOTE | 2024-11-19 14:19 | DVHPN2 ---
Subjective udpates: 11/16 pain continues. LFTs elevated. surgery consulted and plan for OR tomorrow if no choledocholithiass 11/17 pt s/p lap karl, apparently multiple adhesions per Op note. sugery following. patient feels ok. returns to bed with NERI drain and NG tube. VS stable. defer diet resumption to surgeon. 11/18 patient is improving, feeling very hungry today. We will wait for surgery to clear patient for diet. -11/19 -patient is upgraded to clear liquid diet today. He was tolerating well. NG tube is out. Surgery following. Patient feels well, abdominal pain resolving. We will continue to follow up. Reviewed: H&P Changes from previous H/P or p: No Changes General: Per HPI Objective Vitals Vital Signs Date Time Temp Pulse Resp B/P (MAP) Pulse Ox O2 Delivery O2 Flow Rate FiO2 11/19/24 09:00 98.3 66 16 113/66 (82) 95 98.3 11/19/24 08:00 Room Air* 0 21 Intake/Output Intake and Output 11/19/24 07:00 Intake Total 300 ml Output Total 1210 ml Balance -910 ml Intake Oral 200 ml IV Total 100 ml Output Urine Total 1200 ml Gastric Drainage Total 10 ml Exam GEN: Healthy appearing, well-developed, NAD. HEENT: NC/AT; MMM. CV: RRR, no m/r/g. LUNGS: CTAB, no w/r/c. ABD: normoactive bowel sounds. abdominal binder in place, NERI drain with serosanginuous drainage, NG tube is out. dressing of lap karl otherwise CDI. EXT: skin Warm, well perfused. no rashes. No clubbing, cyanosis, or edema. NEURO: Ambulating with no limitations. No focal deficits. Medications Current Medications Medications Dose Ordered Sig/Raisa Route Start Time Stop Time Status Last Admin Dose Admin Ceftriaxone Sodium 50 ml @ 100 mls/hr DAILY@2100 IV 11/16/24 21:00 11/18/24 21:18 100 MLS/HR Metronidazole 100 ml @ 100 mls/hr Q8HR IV 11/16/24 00:30 11/19/24 05:11 100 MLS/HR Ondansetron HCl 4 mg Q4HP PRN IV 11/16/24 00:00 11/17/24 18:57 4 MG Morphine Sulfate 2 mg Q4HPRN PRN IV 11/16/24 00:00 11/17/24 23:02 2 MG Acetaminophen/ Hydrocodone Bitart 1 tab Q4HP PRN PO 11/16/24 22:30 Laboratory Results Laboratory Tests 11/19/24 07:18 Chemistry Test 11/19/24 07:18 Albumin 3.9 g/dL (3.2-4.8) Calcium Level 9.6 mg/dL (8.7-10.4) Total Protein 7.0 g/dL (5.7-8.2) LFT Test 11/19/24 07:18 Alanine Aminotransferase (ALT) 103 U/L (7-40) H Alkaline Phosphatase 138 U/L (46-116) H Aspartate Amino Transferase (AST) 32 U/L (13-40) Total Bilirubin 0.4 mg/dL (0.2-1.0) Labs and/or images reviewed: Labs reviewed by me, Image(s) reviewed by me Assessment/Plan Assessment/Plan -11/19 - patient is upgraded to clear liquid diet today. He was tolerating well. NG tube is out. Surgery following. Patient feels well, abdominal pain resolving. We will continue to follow up. # intractable abdominal pain due to cholecystitis # acute cholecystitis # leukocytosis # transaminitis # ALP elevated # sepsis/septicemia, GI source - patient presented with acute onset of right upper quadrant abdominal pain -on admit patient has low-grade fevers, tachycardia, leukocytosis. - CT abdomen and pelvis confirms acute cholecystitis. - RUQ ultrasound confirming acute cholecystitis , with nonmobile stones and biliary sludge in the distended gallbladder. -noting transaminitis with ALP elevation, MRCP done which rules out choledocholithiasis and confirms acute cholecystitis - sp lap karl on 11/17. doing well after surgery. return to room w NERI drain, abd binder and NG tube. -IV antibiotics - IV fluids - diet per surgery - NG out - on CLD now - follow for bowel function and infectious signs. Diet CLD GI prophylaxis PPI IV daily DVT prophylaxis Lovenox subQ Med tele Full code Plan discussed with: Patient Date of Service: Nov 19, 2024 Billing Provider: NEHAL DORMAN MD Common Visit Codes: [id number] INP/OBS CARE(HIGH) NEHAL DORMAN MD Nov 19, 2024 14:19
--- NOTE | 2024-11-19 18:26 | DVHPN2 ---
Progress Note Date Seen: Nov 19, 2024 Medical Necessity Reason Pt with a Central, PICC or Fol: No Objective vital signs Vital Sign Date Time Temp Pulse Resp B/P (MAP) Pulse Ox O2 Delivery O2 Flow Rate FiO2 11/19/24 16:57 97.8 82 16 116/74 (88) 96 97.8 11/19/24 08:00 Room Air* 0 21 Total Intake and Output 11/18/24 11/18/24 11/19/24 15:00 23:00 07:00 Intake Total 300 ml 0 ml Output Total 600 ml 610 ml Balance -300 ml -610 ml medications Current Medications Medications Dose Ordered Sig/Raisa Route Start Time Stop Time Status Last Admin Dose Admin Ceftriaxone Sodium 50 ml @ 100 mls/hr DAILY@2100 IV 11/16/24 21:00 11/18/24 21:18 100 MLS/HR Metronidazole 100 ml @ 100 mls/hr Q8HR IV 11/16/24 00:30 11/19/24 05:11 100 MLS/HR Ondansetron HCl 4 mg Q4HP PRN IV 11/16/24 00:00 11/17/24 18:57 4 MG Morphine Sulfate 2 mg Q4HPRN PRN IV 11/16/24 00:00 11/17/24 23:02 2 MG Acetaminophen/ Hydrocodone Bitart 1 tab Q4HP PRN PO 11/16/24 22:30 laboratory and microbiology Laboratory Tests 11/19/24 07:18 Test 11/19/24 07:18 Range/Units Serum Glucose 72 L 74-106 mg/dL Problem List/Assessment/Plan Problem List/Assessment/Plan AFEBRILE VSS ABD SOFT WOUNDS HEALING LFT TRENDING DOWN DRAIN 30 CC SEROSANGUINEOUS NO COMPLICATIONS NINFA DIET REPEAT LABS AM Plan discussed with: Patient My Orders My Orders Orders - KURTIS CHEW MD Procedure Category Date Status Time Clear Liq Diet DIET 11/19/24 Transmitted Lunch Dietary Evaluation Review Comments: 1) Advance pt diet when medically feasible 2) Continue current plan of care Expected Outcomes/Goals: F/U in 3-5 days KURTIS CHEW MD Nov 19, 2024 18:26
[2024-11-20] VITALS (7 sets, daily range): BP systolic 106–121; BP diastolic 61–75; PULSE 64–104; RESP 17–20; TEMP 97.4–98.6; O2SAT 94–98
[2024-11-20 07:24] LABS: Basophils # (auto) 0 10 ^3/uL (0-0.2); Basophils % (auto) 0.3 % (0.0-2.0); Eosinophils # (auto) 0.4 10 ^3/uL (0-0.8); Eosinophils % (auto) 3.6 % (0.0-7.0); Hematocrit 42.2 % (41.0-53.0); Hemoglobin 13.9 g/dL (13.5-17.5); Lymphocytes # (auto) 2.4 10 ^3/uL (0.4-5.4); Lymphocytes % (auto) 21.2 % (10.0-50.0); Mean Corpuscular Hemoglobin 30.1 pg (28.0-32.0); Monocytes # (auto) 0.7 10 ^3/uL (0-1.3); Monocytes % (auto) 5.9 % (0.0-12.0); Neutrophils # (auto) 7.8 10 ^3/uL (1.6-8.6); Nucleated Red Blood Cells % 0.1 %; Platelet Count (auto) 428 10^3/uL (140-450); Red Blood Cells 4.64 10^6/uL (4.5-5.90); White Blood Cell 11.3 10^3/uL (4.4-10.8)
[2024-11-20 07:34] LABS: Albumin 3.9 g/dL (3.2-4.8); Anion Gap 9 (5-15); Aspartate Aminotransferase 34 U/L (13-40); Blood Urea Nitrogen 17 mg/dL (9-23); Calcium 9.9 mg/dL (8.7-10.4); Carbon Dioxide 24 mmol/L (20-31); Chloride 106 mmol/L (98-107); Glucose 80 mg/dL (74-106); Potassium 3.7 mmol/L (3.5-5.1); Sodium 139 mmol/L (136-145)
[2024-11-20 07:35] LABS: Bilirubin, Total 0.4 mg/dL (0.2-1.0); Total Protein 7.3 g/dL (5.7-8.2)
[2024-11-20 07:46] LABS: Alanine Aminotransferase 90 U/L (7-40); Alkaline Phosphatase 123 U/L (46-116)
--- NOTE | 2024-11-20 10:15 | DVHPN2 ---
Progress Note Date Seen: Nov 20, 2024 Medical Necessity Reason Pt with a Central, PICC or Fol: No Objective vital signs Vital Sign Date Time Temp Pulse Resp B/P (MAP) Pulse Ox O2 Delivery O2 Flow Rate FiO2 11/20/24 09:00 98.6 64 17 121/74 (90) 94 98.6 11/19/24 20:00 Room Air* 0 21 Total Intake and Output 11/19/24 11/19/24 11/20/24 15:00 23:00 07:00 Intake Total 450 ml 1000 ml Output Total 250 ml 30 ml 600 ml Balance -250 ml 420 ml 400 ml medications Current Medications Medications Dose Ordered Sig/Raisa Route Start Time Stop Time Status Last Admin Dose Admin Ceftriaxone Sodium 50 ml @ 100 mls/hr DAILY@2100 IV 11/16/24 21:00 11/19/24 21:06 100 MLS/HR Metronidazole 100 ml @ 100 mls/hr Q8HR IV 11/16/24 00:30 11/20/24 05:12 100 MLS/HR Ondansetron HCl 4 mg Q4HP PRN IV 11/16/24 00:00 11/17/24 18:57 4 MG Morphine Sulfate 2 mg Q4HPRN PRN IV 11/16/24 00:00 11/17/24 23:02 2 MG Acetaminophen/ Hydrocodone Bitart 1 tab Q4HP PRN PO 11/16/24 22:30 laboratory and microbiology Laboratory Tests 11/20/24 06:36 Test 11/20/24 06:36 Range/Units Serum Glucose 80 74-106 mg/dL Problem List/Assessment/Plan Problem List/Assessment/Plan AFEBRILE VSS ABD SOFT WOUNDS HEALING LFT TRENDING DOWN DRAIN 30 CC SEROSANGUINEOUS NO COMPLICATIONS NINFA DIET CLEARED FOR DISCHARGE INSTRUCTIONS RE DIET ACTIVITY F/UP DRAIN CARE GIVEN NURSE AT BEDSIDE Plan discussed with: Patient My Orders My Orders Orders - KURTIS CHEW MD Procedure Category Date Status Time Clear Liq Diet DIET 11/19/24 Transmitted Lunch Dietary Evaluation Review Comments: 1) Advance pt diet when medically feasible 2) Continue current plan of care Expected Outcomes/Goals: F/U in 3-5 days KURTIS CHEW MD Nov 20, 2024 10:15
[2024-11-20] MEDS ORDERED: AUG875T PO (15:25)
[2024-11-20] MEDS ORDERED: ZOFR4T PO (15:25)
[2024-11-20] MEDS ORDERED: HYDR-4902 PO (15:25)
--- NOTE | 2024-11-20 15:32 | DVHDS2 ---
Discharge Summary Date of Admission Nov 15, 2024 at 23:55 Date of Discharge: Nov 20, 2024 Labs/Diagnostic Data: Laboratory Results Test 11/20/24 06:36 11/19/24 07:18 11/18/24 06:20 11/15/24 23:50 White Blood Count 11.3 10^3/uL (4.4-10.8) Red Blood Count 4.64 10^6/uL (4.5-5.90) Hemoglobin 13.9 g/dL (13.5-17.5) Hematocrit 42.2 % (41.0-53.0) Mean Corpuscular Volume 91.0 fL (80.0-100.0) Mean Corpuscular Hemoglobin 30.1 pg (28.0-32.0) Mean Corpuscular Hemoglobin Concent 33.0 g/dL (32.0-36.0) Red Cell Distribution Width 14.0 % (11.8-14.3) Platelet Count 428 10^3/uL (140-450) Mean Platelet Volume 7.6 fL (6.9-10.8) Neutrophils (%) (Auto) 69.0 % (37.0-80.0) Lymphocytes (%) (Auto) 21.2 % (10.0-50.0) Monocytes (%) (Auto) 5.9 % (0.0-12.0) Eosinophils (%) (Auto) 3.6 % (0.0-7.0) Basophils (%) (Auto) 0.3 % (0.0-2.0) Neutrophils # (Auto) 7.8 10 ^3/uL (1.6-8.6) Lymphocytes # (Auto) 2.4 10 ^3/uL (0.4-5.4) Monocytes # (Auto) 0.7 10 ^3/uL (0-1.3) Eosinophils # (Auto) 0.4 10 ^3/uL (0-0.8) Basophils # (Auto) 0 10 ^3/uL (0-0.2) Nucleated Red Blood Cells 0.1 % Sodium Level 139 mmol/L (136-145) Potassium Level 3.7 mmol/L (3.5-5.1) Chloride Level 106 mmol/L (98-107) Carbon Dioxide Level 24 mmol/L (20-31) Anion Gap 9 (5-15) Blood Urea Nitrogen 17 mg/dL (9-23) Creatinine 1.06 mg/dL (0.700-1.30) Glomerular Filtration Rate Calc 96 mL/min (>90) BUN/Creatinine Ratio 16.0 (10.0-20.0) Serum Glucose 80 mg/dL (74-106) Calcium Level 9.9 mg/dL (8.7-10.4) Total Bilirubin 0.4 mg/dL (0.2-1.0) Aspartate Amino Transferase (AST) 34 U/L (13-40) Alanine Aminotransferase (ALT) 90 U/L (7-40) Alkaline Phosphatase 123 U/L (46-116) Total Protein 7.3 g/dL (5.7-8.2) Albumin 3.9 g/dL (3.2-4.8) Differential Total Cells Counted 100.0 (100) Neutrophils % (Manual) 71 (37.0-80.0) Band Neutrophils % (Manual) 1 Lymphocytes % (Manual) 23 (10.0-50.0) Monocytes % (Manual) 2 (0-12) Eosinophils % (Manual) 0 (0-7) Basophils % (Manual) 0 (0.0-2.0) Metamyelocytes % (manual) 0 Myelocytes % (Manual) 2 Promyelocytes % (Manual) 0 Blast Cells % (Manual) 0 Reactive Lymphocytes 1 Platelet Estimate Adequate Red Blood Cell Morphology Normal Prothrombin Time 11.4 sec (9.3-11.8) Prothrombin Time INR 1.06 (0.9-1.15) Activated Partial Thromboplast Time 28.0 SEC (24.5-34.5) Test 11/15/24 10:00 Lipase 38 U/L (12-53) Other Laboratory Tests 11/20/24 06:36 Brief Hx & Hospital Course: HPI: 34-year-old male presents for evaluation of abdominal pain. Patient endorses a four day history of right upper quadrant abdominal pain which is sharp in nature and nonradiating. He also reports multiple episodes of nausea with vomiting. Denies diarrhea. No fever or chills. Other acute complaints reported. Hospitalization Course: patient presented with acute onset of right upper quadrant abdominal pain. -on admit patient has low-grade fevers, tachycardia, leukocytosis.. CT abdomen and pelvis confirms acute cholecystitis. RUQ ultrasound confirming acute cholecystitis , with nonmobile stones and biliary sludge in the distended gallbladder.-noting transaminitis with ALP elevation, MRCP done which rules out choledocholithiasis and confirms acute cholecystitis. Started on IV antibiotics, sp lap karl on 11/17. doing well after surgery. return to room w NERI drain, abdominal binder and NG tube. 11/18 NG tube removed. Continues to tolerate clear liquid diet. Cleared for discharge by surgery on 11/20. Discharge plan below. Vital signs stable. Diagnosis: # acute cholecystitis s/p laparoscopic cholecystectomy # intractable abdominal pain due to cholecystitis, resolved #cholelithiasis # leukocytosis, # transaminitis # ALP elevated # sepsis/septicemia, GI source Discharge plan: --complete Augmentin 875 mg 2 X daily, for 7 days -For pain, use Tylenol, then ibuprofen, then Kempner 5 mg every 8 hours as needed -use Zofran sublingually dissolving, 3 times daily as needed for nausea -No heavy lifting, X 2 weeks -Full liquid diet X 1 week -follow up with PCP for discharge review -follow up with surgery, keep drained inserted and abdominal binder, we will we reviewed for surgical follow-up -continue other home medications not discussed above. Return to ED if pain returns and/or worsening Visitation and planning required 35 minutes Condition at Discharge: Fair Final Diagnosis/Problems List # acute cholecystitis s/p laparoscopic cholecystectomy # intractable abdominal pain due to cholecystitis, resolved #cholelithiasis # leukocytosis, # transaminitis # ALP elevated # sepsis/septicemia, GI source Discharge Disposition: Home Discharge Instruct/Medications Diet: See Comment Diet comment: Full liquid diet X 1 week Activity: See Comment Activity comment: No heavy lifting, X 2 weeks Follow Up/Referral: PCP, surgery Medications: As below Discharge Statement: "Patient was advised to return to the ER or call 911 if any headaches, dizziness, shortness of breath, chest pain, abdominal pain, bleeding, fevers, or worsening of medical condition. Patient was counseled about treatment plan, medications, possible side effects, patientverbalized understanding. All questions were answered to the best of my ability. This discharge took greater then 30 minutes in planning, reviewing documentation, counseling the patient, and discussing with other team members." ASSESSMENT ASSESSMENT Assessment # acute cholecystitis s/p laparoscopic cholecystectomy # intractable abdominal pain due to cholecystitis, resolved # cholelithiasis # leukocytosis, # transaminitis # ALP elevated # sepsis/septicemia, GI source Date of Service: Nov 20, 2024 Billing Provider: NEHAL DORMAN MD Common Visit Codes: 24535-BZY/OBS DISCH DAY >30min NEHAL DORMAN MD Nov 20, 2024 15:32
== END 2024-11-20 19:56 | disposition home or self-care (01) | DRG 854 ==
LOC: ER 07:14 → OVERFLOW 23:55 → UNDOADMIN 11-16 00:08 → WEST WING 11-16 22:05
PROVIDERS: ADMIT Student in an Organized Health Care Education/Training Program; ATTEND Student in an Organized Health Care Education/Training Program
PROC: 0FT44ZZ Resection of Gallbladder, Percutaneous Endoscopic Approach (ICD-10-PCS; principal; 2024-11-17 09:21)
DX: A41.9 Sepsis, unspecified organism (principal); K80.00 Calculus of gallbladder with acute cholecystitis without obstruction; K29.00 Acute gastritis without bleeding; K82.8 Other specified diseases of gallbladder; K66.0 Peritoneal adhesions (postprocedural) (postinfection); Z79.899 Other long term (current) drug therapy
CPT/HCPCS: 36415; 71045; 74176; 74181; 76705; 80048; 80053; 83690; 85007; 85025; 85027; 85610; 85730; G0378; J1885; J2250; J2405; J2704; J3490